=== PATIENT | male | born 1970 | race Caucasian/White ===

== ENCOUNTER 2018-07-22 16:11 | Emergency (ER) | payer OTHER ==
[2018-07-22] MEDS ORDERED: ACETAMINOPHEN 500 MG TABLET (FP) PO ONE (16:26)
[2018-07-22] MEDS ORDERED: ONDANSETRON *ODT* 4 MG TABLET SL ONE (16:26)
[2018-07-22 16:40] VITALS: BP 157/96; PULSE 84; TEMP 98.4; BMI 32.5
[2018-07-22] MEDS ORDERED: ONDANSETRON *ODT* 4 MG TABLET ONE (16:48)
[2018-07-22] MEDS ORDERED: ACETAMINOPHEN 500 MG TABLET (FP) ONE (16:48)
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
== END 2018-07-22 18:03 | disposition home or self-care (01) ==
LOC: FER 16:11
DX: S13.4XXA Sprain of ligaments of cervical spine, initial encounter (principal); V43.52XA Car driver injured in collision with other type car in traffic accident, initial encounter; Y92.410 Unspecified street and highway as the place of occurrence of the external cause
CPT/HCPCS: 70450-TC; 99283-25; Q0162